=== PATIENT | female | born 2005 | race Two or more races ===

== ENCOUNTER 2023-04-19 09:27 | Emergency (ER) | payer MEDICAID ==
[~2023-04-19] VITALS: Ht 165.1 cm; Wt 63.5 kg
[2023-04-19] MEDS ORDERED: AUG875T PO (11:03)
[2023-04-19] MEDS ORDERED: BENZ1LOZ12 MT (11:04)
[2023-04-19 11:17] VITALS: BP 113/79; PULSE 83; RESP 16; O2SAT 100
[2023-04-19 11:20] VITALS: TEMP 97.6
[2023-04-19] MEDS: ACETAMINOPHEN 500 MG TAB PO ONE (11:20)
== END 2023-04-19 11:23 | disposition home or self-care (01) ==
LOC: ER 09:27
DX: J02.9 Acute pharyngitis, unspecified (principal); Z79.2 Long term (current) use of antibiotics; Z79.899 Other long term (current) drug therapy

== ENCOUNTER 2023-04-25 14:10 | Emergency (ER) | payer MEDICAID ==
[~2023-04-25] VITALS: Ht 152.4 cm; Wt 62.0 kg
[~2023-04-25 14:10] MED LIST: AUG875T PO; BENZ1LOZ12 MT
[2023-04-25 14:37] VITALS: BP 98/70; PULSE 71; RESP 16; TEMP 98; O2SAT 100
== END 2023-04-25 15:01 | disposition home or self-care (01) ==
LOC: ER 14:10
DX: Z02.79 Encounter for issue of other medical certificate (principal); J02.9 Acute pharyngitis, unspecified; Z76.0 Encounter for issue of repeat prescription

== ENCOUNTER 2023-11-02 16:15 | Emergency (ER) | payer SELFPAY ==
[~2023-11-02] VITALS: Ht 154.9 cm; Wt 57.0 kg
[~2023-11-02 16:15] MED LIST changes: -BENZ1LOZ12 MT; +BENZ1LOZ3 MT
[2023-11-02 17:27] LABS: Basophils # (auto) 0 10 ^3/uL (0-0.2); Basophils % (auto) 0.2 % (0.0-2.0); Eosinophils # (auto) 0 10 ^3/uL (0-0.8); Eosinophils % (auto) 0.1 % (0.0-7.0); Hematocrit 41.2 % (36.0-46.0); Hemoglobin 13.8 g/dL (12.2-16.2); Lymphocytes # (auto) 1.4 10 ^3/uL (0.4-5.4); Lymphocytes % (auto) 17.8 % (10.0-50.0); Mean Corpuscular Hemoglobin 28.9 pg (28.0-32.0); Mean Corpuscular Hgb Conc. 33.4 g/dL (32.0-36.0); Mean Corpuscular Volume 86.7 fL (80.0-100.0); Monocytes # (auto) 0.5 10 ^3/uL (0-1.3); Neutrophils # (auto) 5.7 10 ^3/uL (1.6-8.6); Neutrophils % (auto) 74.9 % (37.0-80.0); Nucleated Red Blood Cells % 0.1 %; Platelet Count (auto) 271 10^3/uL (140-450); Red Blood Cells 4.75 10^6/uL (4.0-5.20); Red Cell Distribution Width 14.7 % (11.8-14.3); White Blood Cell 7.6 10^3/uL (4.4-10.8)
[2023-11-02 17:41] LABS: Urine Bacteria FEW /hpf (None Seen); Urine Blood Negative /uL (Negative); Urine Clarity Turbid (Clear); Urine Color Colorless (Yellow); Urine Mucus FEW (None Seen); Urine Protein, UAD TRACE (Negative); Urine Specific Gravity 1.023 (1.001-1.035); Urine Urobilinogen Normal (Negative); Urine WBC 9 /hpf (0 - 5); Urine pH 6.5 (5.0-9.0)
[2023-11-02 17:46] LABS: Alanine Aminotransferase 13 U/L (7-40); Alkaline Phosphatase 55 U/L (46-116); Anion Gap 7 (5-15); Aspartate Aminotransferase 9 U/L (13-40); BUN/Creatinine Ratio 8.5 (10.0-20.0); Blood Urea Nitrogen 5 mg/dL (9-23); Calcium 9.6 mg/dL (8.7-10.4); Carbon Dioxide 25 mmol/L (20-30); Chloride 106 mmol/L (98-107); Glucose 90 mg/dL (74-106); Lipase 32 U/L (12-53); Potassium 3.5 mmol/L (3.5-5.1); Sodium 138 mmol/L (136-145)
[2023-11-02 17:47] LABS: Bilirubin, Total 0.9 mg/dL (0.2-1.0); Total Protein 7.9 g/dL (5.7-8.2)
[2023-11-02] MEDS ORDERED: CEFP200T15 PO (18:21)
[2023-11-02 18:25] VITALS: BP 107/70; TEMP 98.1
[2023-11-02 18:28] VITALS: PULSE 78; RESP 16; O2SAT 100
== END 2023-11-02 18:31 | disposition home or self-care (01) ==
LOC: ER 16:15
DX: N12 Tubulo-interstitial nephritis, not specified as acute or chronic (principal); R11.2 Nausea with vomiting, unspecified; R19.7 Diarrhea, unspecified; Z79.2 Long term (current) use of antibiotics; Z79.899 Other long term (current) drug therapy
CPT/HCPCS: 36415; 80053; 81001; 83605; 83690; 84702; 85025

== ENCOUNTER 2024-07-01 18:53 | Emergency (ER) | payer MEDICAID, OTHER ==
[~2024-07-01] VITALS: Ht 157.5 cm; Wt 57.8 kg
[~2024-07-01 18:53] MED LIST changes: +CEFP200T15 PO
[2024-07-01 19:53] VITALS: BP 103/69; PULSE 90; RESP 20; TEMP 99.6; O2SAT 97
[2024-07-02] MEDS ORDERED: NAPR-746 PO (14:28)
== END 2024-07-01 21:58 | disposition left against medical advice (07) ==
LOC: ER 18:56
DX: S00.81XA Abrasion of other part of head, initial encounter (principal); Z53.21 Procedure and treatment not carried out due to patient leaving prior to being seen by health care provider; X58.XXXA Exposure to other specified factors, initial encounter; Y93.89 Activity, other specified; Y92.89 Other specified places as the place of occurrence of the external cause; Y99.8 Other external cause status

== ENCOUNTER 2024-07-02 09:53 | Emergency (ER) | payer OTHER ==
[~2024-07-02] VITALS: Ht 154.9 cm; Wt 58.0 kg
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
[2024-07-02 13:44] VITALS: BP 99/61; PULSE 83; RESP 16; TEMP 98.9; O2SAT 98
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
[2024-07-02] MEDS ORDERED: NAPR-746 PO (14:28)
== END 2024-07-02 14:32 | disposition home or self-care (01) ==
LOC: ER 09:53
DX: S00.33XA Contusion of nose, initial encounter (principal); S00.83XA Contusion of other part of head, initial encounter; X58.XXXA Exposure to other specified factors, initial encounter; Y93.89 Activity, other specified; Y92.89 Other specified places as the place of occurrence of the external cause; Y99.8 Other external cause status
CPT/HCPCS: 70160; 70450